=== PATIENT | male | born 1995 | race Caucasian/White ===

== ENCOUNTER 2023-12-26 16:03 | Outpatient (AMB) | payer OTHER, SELFPAY ==
--- NOTE | 2023-12-26 16:12 | MHC.OFFWIV ---
Intake Vital Signs 12/26/23 16:14 12/26/23 16:28 Height 6 ft 1 in Weight 360 lb 8 oz BMI 47.6 BP 142/98 H Blood Pressure Location Lt brachial Position Sitting Respiration 17 Pulse 132 H 100 Pulse Source Pulse Oximeter Auscultation Pulse Oximetry (%) 98 Oxygen Delivery Method Room Air Intake Visit Reasons: est/ingrown toenail/infection Intake Note: patient complaining of a ingrwon toe nail on his left foot, big toe Patient Tobacco Use Status: Current everyday Tobacco user (chewing tobacco) Allergies No Known Allergies Allergy (Verified 12/26/23 16:23) Medication List - Last Reconciled 12/26/23 by [facility] No Known Home Meds Do you need a note to return to daycare/school/sports/work: No HPI HPI Comments History of Present Illness Details 28-year-old today complaints of pain and swelling in his great toe. Reports that several weeks ago he developed in ingrown toenail. He removed it himself. Upon regrowth he started with some redness swelling and pain. Has been applying hydrogen peroxide and Neosporin without relief. He now reports that he has pain into his foot and up into his leg. Unsure if this is anxiety driven or not. Reports that he has lots of anxiety about his health. He does not have a primary care provider. Reports that he has known hypertension. His hypertension is also worsened by doctor's visits. He denies fever, chills, chest pain, shortness of breath, swelling of the extremity. Exam: Awake alert NAD Mildly anxious but appropriate and pleasant Mildly tachycardic, regular rythym LLE neurovasc intact, L great toe erythematous, pain with palpation over medial aspect of L great toe nail, purulent drainage, mildly warm to the touch, no streaking, no gouty changes of the joint, nail is yellow and opaque. Plan Tdap today Cephalexin 500 mg p.o. t.i.d. x7 days. Epsom salt soaks 3 times per day. Okay to continue topical Neosporin. Gently lift the nail bed. Do not continue to use any hydrogen peroxide. Return to the office in about 1 week for recheck, sooner as needed. Also recommended that he establish care with a primary care provider. If his insurance does not require a referral, he could seek care with a soap tender for his current issue. However I can not place this referral at the walk-in clinic. His BP will need to be rechecked at the next visit. This note is constructed using voice recognition software. While every effort has been made to ensure accuracy in information technology teacher, still errors may have been included Sometimes, these errors may affect the content or meaning of the given sentence . Total time spent caring for the patient today was 30 minutes. This includes time spent before the visit reviewing the chart, time spent during the visit, and time spent after the visit on documentation [facility] Social History Patient Tobacco Use Status: Current everyday Tobacco user (chewing tobacco) Physical Exam Vital Signs: Last Vital Signs Pulse 100 12/26/23 16:28 Resp 17 12/26/23 16:14 BP 142/98 H 12/26/23 16:14 Pulse Ox 98 12/26/23 16:14 Oxygen Delivery Method Room Air 12/26/23 16:14 BMI result Body Mass Index 47.6 Assessment & Plan Assessment & Plan (1) Paronychia of toe of left foot due to ingrown toenail: Code(s): L03.032 - Cellulitis of left toe; L60.0 - Ingrowing nail Plan: . (2) Morbid obesity with BMI of 45.0-49.9, adult: Code(s): E66.01 - Morbid (severe) obesity due to excess calories; Z68.42 - Body mass index [BMI] 45.0-49.9, adult (3) HTN (hypertension): Code(s): I10 - Essential (primary) hypertension Qualifiers: Hypertension type: primary hypertension Qualified Code(s): I10 - Essential (primary) hypertension Plan: . (4) Tachycardia: Code(s): R00.0 - Tachycardia, unspecified Plan: . Plan . Orders: Orders TDaP Immunization Today Z23 - Encounter for immunization Medications: New cephalexin 500 mg PO Q8H 21 caps 0RF 7 days Coding Level of Care Code Est Pt Level 4 (22062) Diagnoses Paronychia of toe of left foot due to ingrown toenail L03.032; L60.0 Morbid obesity with BMI of 45.0-49.9, adult E66.01; Z68.42 Primary hypertension I10 Hypertension type: primary hypertension Tachycardia R00.0
[2023-12-26 16:14] VITALS: BP 142/98; PULSE 132; RESP 17; O2SAT 98; BMI 47.6
[2023-12-26 16:28] VITALS: PULSE 100
== END 2023-12-26 16:48 | disposition home or self-care (01) ==
PROVIDERS: Visit Provider Nurse Practitioner Family
DX: L03.032 Cellulitis of left toe (principal); L60.0 Ingrowing nail; E66.01 Morbid (severe) obesity due to excess calories; Z68.42 Body mass index [BMI] 45.0-49.9, adult; I10 Essential (primary) hypertension; R00.0 Tachycardia, unspecified; Z23 Encounter for immunization

== ENCOUNTER → 2023-12-26 16:03 | Outpatient (BNVA) | payer OTHER, SELFPAY | DX: L03.032 Cellulitis of left toe (principal); L60.0 Ingrowing nail; E66.01 Morbid (severe) obesity due to excess calories; Z68.42 Body mass index [BMI] 45.0-49.9, adult; I10 Essential (primary) hypertension; R00.0 Tachycardia, unspecified; Z23 Encounter for immunization | CPT/HCPCS: 90471; 90715 ==

== ENCOUNTER 2024-01-02 12:51 | Outpatient (AMB) | payer OTHER, SELFPAY ==
--- NOTE | 2024-01-02 13:02 | MHC.PC.OV ---
Vital Signs 01/02/24 13:05 Height 6 ft 1 in Weight 368 lb BMI 48.5 BP 138/76 Blood Pressure Location Lt brachial Position Sitting Respiration 15 Pulse 79 Pulse Source Pulse Oximeter Pulse Oximetry (%) 98 Oxygen Delivery Method Room Air Intake Visit Reasons: 1 week fu L great toe infection & Bp recheck Intake Note: Patient here for follow up on hypertension and L toe infection Allergies No Known Allergies Allergy (Verified 01/02/24 13:04) Medication List - Last Reconciled 01/02/24 by ANAND [facility] No Known Home Meds HPI HPI Comments History of Present Illness Details Here today to follow up I saw him last week for paronychia of his left great toe. Incidentally he was noted to be hypertensive and tachycardic. Since this last office visit, he has completed the cephalexin, last dose today. Has been soaking in Epsom salt. Unfortunately he did continue to self treating at home and tried to remove part of the nail. He did not follow up with Podiatry. He reports that the pain is gone, the swelling has improved. He does not think that there is anymore drainage as he has not noted any on his socks. In regards to his blood pressure and pulse, on exam today this is now normal. Patient endorses lots of anxiety at the last office visit. Exam: Awake alert NAD Mildly anxious but appropriate and pleasant Regular rate and rhythm LLE neurovasc intact, L great toe is mildly erythematous albeit much better than previous, pain with palpation over medial aspect of L great toe nail, purulent drainage small amt, not warm to the touch, no streaking, no gouty changes of the joint, nail is yellow and opaque. Plan: Five more days of cephalexin. Continue Epsom salt soaks. No more at home treatments. Follow up with Podiatry. Referral placed today. Recommended a follow up to establish care with a primary care provider. This note is constructed using voice recognition software. While every effort has been made to ensure accuracy in range operator, still errors may have been included Sometimes, these errors may affect the content or meaning of the given sentence . Total time spent caring for the patient today was 30 minutes. This includes time spent before the visit reviewing the chart, time spent during the visit, and time spent after the visit on documentation [facility] Social History Patient Tobacco Use Status: Current everyday Tobacco user (chewing tobacco) Questionnaire PHQ-9 Over the last 2 weeks, how often have you been bothered by any of the following problems? 1. Little interest or pleasure in doing things: not at all 2. Feeling down, depressed, or hopeless: not at all 3. Trouble falling or staying asleep, or sleeping too much: several days 4. Feeling tired or having little energy: several days 5. Poor appetite or overeating: more than half the days 6. Feeling bad about yourself - or that you are a failure or have let yourself or your family down: not at all 7. Trouble concentrating on things, such as reading the newspaper or watching television: not at all 8. Moving or speaking so slowly that other people could have noticed. Or the opposite - being so fidgety or restless that you have been moving around a lot more than usual: not at all 9. Thoughts that you would be better off or of hurting yourself in some way: not at all Total score: 4 Depression Screening Interpretation: Negative Depression Screening Done: Yes 51339 - PHQ-9 Billing: Yes Source: Developed by Drs. Fredy Cevallos, Joycelyn Allen, Finn Cheney and colleagues, with an educational hyacinth from [employer]. Thrive Questionnaire Date Thrive assessed: 01/02/24 I am a: Patient What is your living situation today?: I have a steady place to live Within the past 12 months, did the food you bought not last and you didn't have the money to get more?: Never true Within the past 12 months, did you worry whether your food would run out before you got money to buy more?: Never true Do you have trouble paying for medicines?: No Do you have trouble getting transportation to medical appointments?: No Do you have trouble paying your heating and electricity bill?: No Do you have trouble taking care of your child, family member or friend?: No Do you have trouble with day-to-day activities such as bathing, preparing meals, shopping, managing finances, etc.?: No Are you currently unemployed and looking for a job?: No Are you interested in more education?: No Please select the resources that you would like help with: None Currently or been in a relationship where the following occur: No concerns reported THRIVE Score: 0 AUDIT C Alcohol Use Questionnaire (AUDIT-C) 1. How often do you have a drink containing alcohol?: Never 3. How often do you have six or more drinks on one occasion?: Never Total Score: 0 Score Reviewed/Action Taken: Yes GAYLE-7 AMB Questionnaire GAYLE-7 Date GAYLE - 7 assessed: 01/02/24 Feeling nervous, anxious, or on edge: 0 = Not at all Not being able to stop or control worryin = Not at all Worrying too much about different things: 1 = Several days Trouble relaxin = Not at all Being so restless that it is hard to sit still: 0 = Not at all Becoming easily annoyed or irritable: 0 = Not at all Feeling afraid as if something awful might happen: 0 = Not at all Total GAYLE-7 score (0-4 normal; 5-9 mild; 10-14 moderate; 15-21 severe): 1 Source: Developed by Drs. Fredy Cevallos, Joycelyn Allen, Finn Cheney and colleagues, with an educational hyacinth from [employer]. GAYLE-7 Assessment Billing GAYLE-7 Assessment Tool: GAYLE-7 Assessment 60844 Physical exam (Primary Care) Vital Signs: Last Vital Signs Pulse 79 01/02/24 13:05 Resp 15 01/02/24 13:05 BP 138/76 01/02/24 13:05 Pulse Ox 98 01/02/24 13:05 Oxygen Delivery Method Room Air 01/02/24 13:05 BMI result Body Mass Index 48.5 Tobacco/Smoking Status: Tobacco use Status Patient Tobacco Use Status Current everyday Tobacco ( 01/02/24 13:09 chewing tobacco) PHQ-9: PHQ-9 Score PHQ-9: Total score 4 01/02/24 13:33 Depression Screening Interpretation: Negative Currently or been in a relationship where the following occur: No concerns reported Assessment and Plan Assessment & Plan (1) Paronychia of toe of left foot due to ingrown toenail: Code(s): L03.032 - Cellulitis of left toe; L60.0 - Ingrowing nail (2) Morbid obesity with BMI of 45.0-49.9, adult: Code(s): E66.01 - Morbid (severe) obesity due to excess calories; Z68.42 - Body mass index [BMI] 45.0-49.9, adult (3) Tachycardia: Code(s): R00.0 - Tachycardia, unspecified (4) Elevated blood pressure reading: Code(s): R03.0 - Elevated blood-pressure reading, without diagnosis of hypertension Orders: Referrals Podiatry Referral L03.032 - Cellulitis of left toe, L60.0 - Ingrowing nail Medications: New cephalexin 500 mg PO Q8H 15 caps 0RF 5 days Coding Level of Care Code Est Pt Level 4 (07317) Complex EM visit Add On G2211 Diagnoses Paronychia of toe of left foot due to ingrown toenail L03.032; L60.0 Morbid obesity with BMI of 45.0-49.9, adult E66.01; Z68.42 Tachycardia R00.0 Elevated blood pressure reading R03.0 Additional Codes GAYLE-7 Assessment Billing - GAYLE-7 Assessment Tool: GAYLE-7 Assessment [id number] ([id number])
[2024-01-02 13:05] VITALS: BP 138/76; PULSE 79; RESP 15; O2SAT 98; BMI 48.5
== END 2024-01-02 13:34 | disposition home or self-care (01) ==
PROVIDERS: Visit Provider Nurse Practitioner Family
DX: L03.032 Cellulitis of left toe (principal); L60.0 Ingrowing nail; E66.01 Morbid (severe) obesity due to excess calories; Z68.42 Body mass index [BMI] 45.0-49.9, adult; R00.0 Tachycardia, unspecified; R03.0 Elevated blood-pressure reading, without diagnosis of hypertension

== ENCOUNTER → 2024-01-02 12:51 | Outpatient (BNVA) | payer OTHER, SELFPAY | PROVIDERS: Visit Provider Nurse Practitioner Family | DX: L03.032 Cellulitis of left toe (principal); L60.0 Ingrowing nail; E66.01 Morbid (severe) obesity due to excess calories; Z68.42 Body mass index [BMI] 45.0-49.9, adult; R00.0 Tachycardia, unspecified; R03.0 Elevated blood-pressure reading, without diagnosis of hypertension | CPT/HCPCS: 96127 ==